=== PATIENT | male | born 1970 | race American Indian/Alaskan Native ===

== ENCOUNTER 2017-06-02 10:52 | Inpatient (IN) | payer MEDICAID ==
--- NOTE | 2017-06-02 11:45 | ED PDOC ---
Arrival/HPI - General Chief Complaint: High Blood Pressure Time Seen by Provider: 06/02/17 11:06 Historian: Patient - History of Present Illness Narrative History of Present Illness (Text): 06/02/17 11:42 47yo male with no Past medical history biba for elevated BP. Patient states his Blood pressure was elevated today, when he went for his physical. States he was told his BP was 210/?? States he have not seen a Doctor for a while and today was the first time seeing a Doctor. He however denies any chest pain, focal weakness, headache, dizziness, visual changes, nausea, vomiting, slurred speech, any other complaint. Past Medical History - Provider Review Nursing Documentation Reviewed: Yes - Infectious Disease Hx of Infectious Diseases: None - Psychiatric Hx Substance Use: No - Anesthesia Hx Anesthesia: No Family/Social History - Physician Review Nursing Documentation Reviewed: Yes Family/Social History: Unknown Family HX Smoking Status: Unknown If Ever Smoked Hx Alcohol Use: Yes Frequency of alcohol use: Socially Hx Substance Use: No Allergies/Home Meds Allergies/Adverse Reactions: Allergies shrimp Allergy (Uncoded 06/02/17 12:09) RASH Home Medications: Home Meds Medication Instructions Recorded Confirmed No Known Home Med 06/02/17 06/02/17 Review of Systems - Physician Review All systems were reviewed & negative as marked: Yes - Review of Systems Constitutional: Normal, Other (Elevated BP) Eyes: Normal ENT: Normal Respiratory: Normal Cardiovascular: Normal Gastrointestinal: Normal Genitourinary Male: Normal Musculoskeletal: Normal Skin: Normal Neurological: Normal Endocrine: Normal Hemo/Lymphatic: Normal Psychiatric: Normal Physical Exam Vital Signs Reviewed: Yes Vital Signs Temp Pulse Resp BP Pulse Ox 06/02/17 15:35 83 18 182/136 H 96 06/02/17 15:00 97.9 F 81 19 171/112 H 98 06/02/17 11:57 65 153/101 H 06/02/17 11:11 98.2 F 65 16 165/110 H 98 Temperature: Afebrile Blood Pressure: Hypertensive Pulse: Regular Respiratory Rate: Normal Appearance: Positive for: Well-Appearing, Non-Toxic, Comfortable Pain Distress: None Mental Status: Positive for: Alert and Oriented X 3 - Systems Exam Head: Present: Atraumatic, Normocephalic Pupils: Present: PERRL Extroacular Muscles: Present: EOMI Conjunctiva: Present: Normal Mouth: Present: Moist Mucous Membranes Neck: Present: Normal Range of Motion Respiratory/Chest: Present: Clear to Auscultation, Good Air Exchange. No: Respiratory Distress, Accessory Muscle Use Cardiovascular: Present: Regular Rate and Rhythm, Normal S1, S2. No: Murmurs Abdomen: Present: Normal Bowel Sounds. No: Tenderness, Distention, Peritoneal Signs Back: Present: Normal Inspection Upper Extremity: Present: Normal Inspection. No: Cyanosis, Edema Lower Extremity: Present: Normal Inspection. No: Edema Neurological: Present: GCS=15, CN II-XII Intact, Speech Normal Skin: Present: Warm, Dry, Normal Color. No: Rashes Psychiatric: Present: Alert, Oriented x 3, Normal Insight, Normal Concentration Medical Decision Making ED Course and Treatment: 06/02/17 16:27 Pt presented to Emergency department for stated history. He remain asymptomatic , but his BP remain elevated s/p medication in Emergency department. He was hypokalemic and potassium was repleted in Emergency department. EKG SR with LVH and possible LAE @66bpm. Pt will be admitted to Emergency department for further evaluation and control of his BP secondary to the LVH finding in the EKG, which indicates some organ damage. Plan was DW the pt and he agreed. Case was DW Dr. Díaz and she accepted pt for admission. - Lab Interpretations Lab Results: 06/02/17 13:00 06/02/17 13:00 Lab Results 06/02/17 13:00: Sodium 140, Potassium 2.9 L*, Chloride 102, Carbon Dioxide 29, Anion Gap 12, BUN 16, Creatinine 0.8, Est GFR ( Amer) > 60, Est GFR (Non- Af Amer) > 60, Random Glucose 91, Calcium 9.2, Total Bilirubin 1.3, AST 33, ALT 44, Alkaline Phosphatase 59, Lactate Dehydrogenase 632, Total Creatine Kinase 248 H, CK-MB (CK-2) 2.7, CK-MB (CK-2) % Cancelled, Troponin I < 0.01, Total Protein 7.0, Albumin 4.0, Globulin 3.1, Albumin/Globulin Ratio 1.3 06/02/17 13:00: PT 11.8, INR 1.08, APTT 32.2 06/02/17 13:00: WBC 5.2, RBC 4.88, Hgb 14.2, Hct 39.9 L, MCV 81.8, MCH 29.1, MCHC 35.6, RDW 13.9, Plt Count 228, MPV 11.3 H, Gran % 46.7 L, Lymph % (Auto) 42.6 H, [place] % (Auto) 6.6 H, Eos % (Auto) 3.5, Baso % (Auto) 0.6, Gran # 2.41, Lymph # 2.2, [place] # 0.3, Eos # 0.2, Baso # 0.03 - Medication Orders Current Medication Orders: Discontinued Medications Amlodipine Besylate (Norvasc) 5 mg PO STAT STA Stop: 06/02/17 11:24 Last Admin: 06/02/17 11:57 Dose: 5 mg MAR Pulse and Blood Pressure Document 06/02/17 11:57 LA (Rec: 06/02/17 11:59 LA [facility] [id number]) Pulse Pulse Rate (60-90 beats/min) 65 Blood Pressure Blood Pressure (100/60-150/90 mm Hg) 153/101 Hydralazine HCl (Apresoline) 10 mg IVP STAT STA Stop: 06/02/17 16:21 Potassium Chloride (Potassium Chloride 20 Meq/100 Ml) 20 meq in 100 mls @ 50 mls/hr IVPB Q2H STA Stop: 06/02/17 15:34 Last Admin: 06/02/17 14:14 Dose: 50 mls/hr eMAR Start Stop Document 06/02/17 14:14 SRE (Rec: 06/02/17 14:14 SRE [id number]) Intravenous Solution Start Date 06/02/17 Start Time 14:00 End Date 06/02/17 End time 17:00 Total Infusion Time 180 Potassium Chloride (Potassium Chloride Oral Soln) 40 meq PO STAT STA Stop: 06/02/17 13:36 Last Admin: 06/02/17 14:00 Dose: 40 meq Disposition/Present on Arrival - Present on Arrival Any Indicators Present on Arrival: No History of DVT/PE: No History of Uncontrolled Diabetes: No Urinary Catheter: No History of Decub. Ulcer: No History Surgical Site Infection Following: None - Disposition Have Diagnosis and Disposition been Completed?: Yes Diagnosis: Uncontrolled hypertension, Hypokalemia Disposition: HOSPITALIZED Disposition Time: 16:25 Patient Problems: Current Active Problems Problem Status Onset Hypokalemia Acute Uncontrolled hypertension Acute Condition: FAIR Referrals: Pasha Elizabeth MD [Primary Care Provider] - Follow up with primary Forms: [employer] ([employer])
[2017-06-02 13:12] LABS: BASO # 0.03 K/mm3 (0.0-2.0); BASO % 0.6 % (0.0-3.0); EOS # 0.2 (0.0-0.7); EOS % 3.5 % (1.5-5.0); GRAN # 2.41 (1.4-6.5); GRAN % 46.7 % (50.0-68.0); HEMATOCRIT 39.9 % (42.0-52.0); LYMPH # 2.2 (1.2-3.4); LYMPH % 42.6 % (22.0-35.0); MEAN CELL VOLUME 81.8 fl (80.0-105.0); MEAN CORPUSCULAR HEMOGLOBIN 29.1 pg (25.0-35.0); MEAN CORPUSCULAR HGB CONC 35.6 g/dl (31.0-37.0); MEAN PLATELET VOLUME 11.3 fl (7.0-11.0); MONO # 0.3 (0.1-0.6); MONO % 6.6 % (1.0-6.0); RED CELL DISTRIBUTION WIDTH 13.9 % (11.5-14.5); WHITE BLOOD COUNT 5.2 10^3/ul (4.5-11.0)
[2017-06-02 13:34] LABS: TROPONIN I < 0.01 ng/mL
[2017-06-02 13:35] LABS: ALB/GLOB RATIO 1.3 (1.1-1.8); ALKALINE PHOSPHATASE 59 U/L (38-126); ALT/SGPT 44 U/L (7-56); AST/SGOT 33 U/L (17-59); BILIRUBIN,TOTAL 1.3 mg/dL (0.2-1.3); BLOOD UREA NITROGEN 16 mg/dL (7-21); CALCIUM 9.2 mg/dL (8.4-10.5); CARBON DIOXIDE 29 mmol/L (21-33); CHLORIDE 102 mmol/L (98-107); GFR AFRICAN-AMERICAN > 60; GLUCOSE,RANDOM 91 mg/dL (70-110); POTASSIUM 2.9 mmol/L (3.6-5.0); SODIUM 140 mmol/L (132-148)
[2017-06-02] MEDS ORDERED: Potassium Chloride 40 mEq/30 ml LIQ UD PO STA (13:35)
[2017-06-02 14:02] LABS: INR 1.08 (0.93-1.08); PARTIAL THROMBOPLASTIN TIME 32.2 Seconds (25.1-36.5)
--- NOTE | 2017-06-02 17:56 | CP.PCM.HP ---
<La Nena Pal - Last Filed: 06/02/17 18:08> History of Present Illness - History of Present Illness History of Present Illness: 47 year old female with no PMHx presents with Elevated BP. Patient went to his PMD for a physical and was found to have his BP elevated with systolic over 180 and diastolic over 100. Patient has no complaints. He denies any fever, headache, dizziness, lightheadedness, chest pain, palpitations, SOB, abdominal pain, or urinary symptoms. PMHx: Denies PSHx: Denies Allergies: Shrimp Social Hx: Denies ever smoking, drinks socially (weekly), lives with his / kids, works as a [employer] FamHx: HTN/Stroke (Father) Meds: None Present on Admission - Present on Admission Any Indicators Present on Admission: No Review of Systems - Review of Systems All systems: reviewed and no additional remarkable complaints except Review of Systems: As per HPI Past Patient History - Infectious Disease Hx of Infectious Diseases: None - Past Social History Smoking Status: Unknown If Ever Smoked - PSYCHIATRIC Hx Substance Use: No - ANESTHESIA Hx Anesthesia: No Meds Allergies/Adverse Reactions: Allergies Allergy/AdvReac Type Severity Reaction Status Date / Time shrimp Allergy RASH Uncoded 06/02/17 22:45 Physical Exam - Constitutional Appears: Well, Non-toxic, No Acute Distress - Head Exam Head Exam: ATRAUMATIC, NORMAL INSPECTION, NORMOCEPHALIC - Eye Exam Eye Exam: EOMI, Normal appearance. absent: Conjunctival injection, Periorbital swelling, Scleral icterus - ENT Exam ENT Exam: Mucous Membranes Moist - Neck Exam Neck exam: Positive for: Normal Inspection. Negative for: Lymphadenopathy, Tenderness, Thyromegaly - Respiratory Exam Respiratory Exam: Clear to Auscultation Bilateral, NORMAL BREATHING PATTERN. absent: Accessory Muscle Use, Decreased Breath Sounds, Rales, Rhonchi, Wheezes, Respiratory Distress, Stridor - Cardiovascular Exam Cardiovascular Exam: RRR, +S1, +S2. absent: Clicks, Diastolic murmur, Gallop, JVD, Systolic Murmur Additional comments: Absent: Carotid Bruit - GI/Abdominal Exam GI & Abdominal Exam: Normal Bowel Sounds, Soft. absent: Bruit, Distended, Firm , Guarding, Mass, Organomegaly, Pulsatile Mass, Rebound, Rigid, Tenderness - Extremities Exam Extremities exam: Positive for: normal capillary refill, normal inspection. Negative for: pedal edema - Neurological Exam Neurological exam: Oriented x3 - Psychiatric Exam Psychiatric exam: Normal Affect, Normal Mood - Skin Skin Exam: Dry, Intact, Normal Color, Warm Results - Vital Signs Recent Vital Signs: Last Vital Signs Temp 98 F 06/02/17 17:43 Pulse 78 06/02/17 17:43 Resp 18 06/02/17 17:43 BP 100/67 06/02/17 17:43 Pulse Ox 96 06/02/17 17:43 - Labs Result Diagrams: 06/02/17 13:00 06/02/17 13:00 Assessment & Plan - Assessment and Plan (Free Text) Assessment: 47 year old male with no past medical history admitted for evaluation and treatment of hypertensive urgency Plan: Hypertensive Urgency Was given norvasc 5 and Hydralazine 10 in ER. --EKG: NSR with LVH, possible left Atrial Enlargement and T wave abnormalities. Awaiting Official Read --ECHO --Cardio Consult (Dr. Garcia) --SAMIR Panel x 3 1st SAMIR NEGATIVE --Fasting lipid Panel in AM --Renin/Aldosterone lvls --TSH -0.48, T4 - 1.29 --PRN Clonidine --Norvasc 5 Daily (Held due to low BP) --ASA 81 Daily --Consider Lisinopril 5 Hypokalemia 2.9 on Admission. Received a total of 60 meQ in ED --Mg ordered; F/U --K+ ordered for 22:00 F/U --CMP tomorrow AM Proph Protonix SCD's Heart Healthy 2g Na Diet Patient seen and discussed with Attending La Nena Pal - PGY-1 - Date & Time Date: 06/02/17 Time: 18:00 <Briana Lofton - Last Filed: 06/03/17 06:54> Results - Vital Signs Recent Vital Signs: Last Vital Signs Temp 98.1 F 06/03/17 06:00 Pulse 83 06/03/17 06:00 Resp 20 06/03/17 06:00 BP 162/103 H 06/03/17 06:00 Pulse Ox 96 06/03/17 06:00 - Labs Result Diagrams: 06/03/17 04:35 06/03/17 04:35 Labs: Laboratory Results - last 24 hr 06/02/17 06/02/17 06/03/17 17:59 21:23 03:55 WBC RBC Hgb Hct MCV MCH MCHC RDW Plt Count MPV Gran % Lymph % (Auto) [place] % (Auto) Eos % (Auto) Baso % (Auto) Gran # Lymph # [place] # Eos # Baso # Sodium Potassium 3.3 L Chloride Carbon Dioxide Anion Gap BUN Creatinine Est GFR ( Amer) Est GFR (Non-Af Amer) Random Glucose Calcium Phosphorus Magnesium 2.1 Total Bilirubin AST ALT Alkaline Phosphatase Total Creatine Kinase 229 198 Troponin I < 0.01 < 0.01 Total Protein Albumin Globulin Albumin/Globulin Ratio Triglycerides Cholesterol LDL Cholesterol Direct HDL Cholesterol 06/03/17 06/03/17 04:35 04:35 WBC 6.2 RBC 4.66 Hgb 13.3 L Hct 38.0 L MCV 81.5 MCH 28.5 MCHC 35.0 RDW 14.1 Plt Count 230 MPV 10.7 Gran % 46.3 L Lymph % (Auto) 43.3 H [place] % (Auto) 6.6 H Eos % (Auto) 3.0 Baso % (Auto) 0.8 Gran # 2.88 Lymph # 2.7 [place] # 0.4 Eos # 0.2 Baso # 0.05 Sodium 142 Potassium 2.9 L* Chloride 105 Carbon Dioxide 27 Anion Gap 13 BUN 17 Creatinine 1.0 Est GFR ( Amer) > 60 Est GFR (Non-Af Amer) > 60 Random Glucose 90 Calcium 8.9 Phosphorus 3.9 Magnesium 2.0 Total Bilirubin 1.3 AST 30 ALT 43 Alkaline Phosphatase 57 Total Creatine Kinase Troponin I Total Protein 7.1 Albumin 3.8 Globulin 3.3 Albumin/Globulin Ratio 1.2 Triglycerides 120 Cholesterol 207 H LDL Cholesterol Direct 135 H HDL Cholesterol 35 Attending/Attestation - Attestation I have personally seen and examined this patient.: Yes I have fully participated in the care of the patient.: Yes I have reviewed all pertinent clinical information: Yes Notes (Text): 06/03/17 06:52 47 year old male with no significant past medical history who was sent from his pmd for evaluation of elevated blood pressure. He was given norvasc and hydralazine in the ER. Can continue with norvasc and clonidine prn. He was found to have abnormal EKG (TWI lateral leads) although he denies any chest pain or shortness of breath. Serial cardiac ezymes and echocardiogram was ordered. Will also request for cardiology evaluation. Hypokalemia was repleted in ER. Will recheck and supplement as needed. Briana Lofton MD Hospitalist.
[2017-06-02 18:27] LABS: FREE T4 1.29 ng/dL (0.78-2.19)
[2017-06-02 18:41] LABS: THYROID STIMULATING HORMONE 0.48 mIU/mL (0.46-4.68)
[2017-06-02 21:48] LABS: POTASSIUM 3.3 mmol/L (3.6-5.0)
[2017-06-02 21:58] LABS: TROPONIN I < 0.01 ng/mL
[2017-06-02 23:29] VITALS: BMI 36.0
[2017-06-02] MEDS ORDERED: Influenza Vaccine 60 mcg/0.5 mL SYR (4YR UP) IM ONE (23:29)
[2017-06-02] MEDS ORDERED: Pneumococcal 23-Valent Vaccine IM ONE (23:29)
[2017-06-03 04:24] LABS: TROPONIN I < 0.01 ng/mL
[2017-06-03 04:54] LABS: BASO # 0.05 K/mm3 (0.0-2.0); BASO % 0.8 % (0.0-3.0); EOS # 0.2 (0.0-0.7); GRAN # 2.88 (1.4-6.5); GRAN % 46.3 % (50.0-68.0); LYMPH # 2.7 (1.2-3.4); LYMPH % 43.3 % (22.0-35.0); MEAN CELL VOLUME 81.5 fl (80.0-105.0); MEAN CORPUSCULAR HEMOGLOBIN 28.5 pg (25.0-35.0); MEAN PLATELET VOLUME 10.7 fl (7.0-11.0); MONO # 0.4 (0.1-0.6); MONO % 6.6 % (1.0-6.0); RED CELL DISTRIBUTION WIDTH 14.1 % (11.5-14.5); WHITE BLOOD COUNT 6.2 10^3/ul (4.5-11.0)
[2017-06-03 05:28] LABS: ALB/GLOB RATIO 1.2 (1.1-1.8); ALKALINE PHOSPHATASE 57 U/L (38-126); ALT/SGPT 43 U/L (7-56); AST/SGOT 30 U/L (17-59); BILIRUBIN,TOTAL 1.3 mg/dL (0.2-1.3); BLOOD UREA NITROGEN 17 mg/dL (7-21); CALCIUM 8.9 mg/dL (8.4-10.5); CARBON DIOXIDE 27 mmol/L (21-33); CHLORIDE 105 mmol/L (98-107); CHOLESTEROL 207 mg/dL (130-200); GFR AFRICAN-AMERICAN > 60; GLUCOSE,RANDOM 90 mg/dL (70-110); PHOSPHOROUS 3.9 mg/dL (2.5-4.5); POTASSIUM 2.9 mmol/L (3.6-5.0); SODIUM 142 mmol/L (132-148); TOTAL PROTEIN 7.1 g/dL (5.8-8.3)
[2017-06-03] MEDS ORDERED: Potassium Chloride 20 mEq ER Tab PO ONE ×2 (05:31→08:58)
[2017-06-03] MEDS ORDERED: Potassium Chloride 40 mEq/30 ml LIQ UD PO ONE ×2 (07:32→14:33)
[2017-06-03] MEDS: Pantoprazole 40 mg EC Tab PO SCH (09:45)
--- NOTE | 2017-06-03 10:37 | CARD ---
APPROVED REPORT EKG Measurement Heart [id number] <Conclusion> Normal sinus rhythm Possible Left atrial enlargement Left ventricular hypertrophy T wave abnormality, consider inferolateral ischemia Prolonged QT Abnormal ECG
--- NOTE | 2017-06-03 12:57 | CP.PCM.PN ---
<La Nena Pal - Last Filed: 06/03/17 12:53> Subjective - Date & Time of Evaluation Date of Evaluation: 06/03/17 Time of Evaluation: 12:53 - Subjective Subjective: Patient has been seen and examined. No overnight events reported. Patient got a dose of PRN clonidine due to elevated BP. Patient has no complaints at this time. Denies any headache, lightheadedness, vision changes, chest pain, palpitations, SOB, abdominal pain, back pain, changes in bowel habits or urinary symptoms. Objective - Vital Signs/Intake and Output Vital Signs (last 24 hours): Temp Pulse Resp BP Pulse Ox 98.3 F 78 20 183/110 H 96 06/03/17 11:26 06/03/17 11:34 06/03/17 11:26 06/03/17 11:34 06/03/17 06:00 Intake and Output: 06/03/17 06/03/17 06:59 18:59 Intake Total 0 Balance 0 - Medications Medications: Current Medications Amlodipine Besylate (Norvasc) 5 mg PO DAILY [facility] Last Admin: 06/03/17 09:45 Dose: 5 mg Aspirin (Aspirin Chewable) 81 mg PO DAILY [facility] Last Admin: 06/03/17 09:45 Dose: 81 mg Hydralazine HCl (Apresoline) 25 mg PO Q4 PRN PRN Reason: Other Losartan Potassium (Cozaar) 50 mg PO DAILY [facility] Pantoprazole Sodium (Protonix Ec Tab) 40 mg PO DAILY [facility] Last Admin: 06/03/17 09:45 Dose: 40 mg - Labs Labs: 06/03/17 04:35 06/03/17 04:35 PT 11.8 SECONDS (9.4-12.5) 06/02/17 13:00 INR 1.08 (0.93-1.08) 06/02/17 13:00 APTT 32.2 Seconds (25.1-36.5) 06/02/17 13:00 - Additional Findings Additional findings: - Constitutional Appears: Well, Non-toxic, No Acute Distress - Head Exam Head Exam: ATRAUMATIC, NORMAL INSPECTION, NORMOCEPHALIC - Eye Exam Eye Exam: EOMI, Normal appearance. absent: Conjunctival injection, Periorbital swelling, Scleral icterus - ENT Exam ENT Exam: Mucous Membranes Moist - Neck Exam Neck exam: Positive for: Normal Inspection. Negative for: Lymphadenopathy, Tenderness, Thyromegaly - Respiratory Exam Respiratory Exam: Clear to Auscultation Bilateral, NORMAL BREATHING PATTERN. absent: Accessory Muscle Use, Decreased Breath Sounds, Rales, Rhonchi, Wheezes, Respiratory Distress, Stridor - Cardiovascular Exam Cardiovascular Exam: RRR, +S1, +S2. absent: Clicks, Diastolic murmur, Gallop, JVD, Systolic Murmur Additional comments: Absent: Carotid Bruit - GI/Abdominal Exam GI & Abdominal Exam: Normal Bowel Sounds, Soft. absent: Bruit, Distended, Firm , Guarding, Mass, Organomegaly, Pulsatile Mass, Rebound, Rigid, Tenderness - Extremities Exam Extremities exam: Positive for: normal capillary refill, normal inspection. Negative for: pedal edema - Neurological Exam Neurological exam: Oriented x3 - Psychiatric Exam Psychiatric exam: Normal Affect, Normal Mood - Skin Skin Exam: Dry, Intact, Normal Color, Warm Assessment and Plan - Assessment and Plan (Free Text) Assessment: 47 year old male with no past medical history admitted for evaluation and treatment of hypertensive urgency Plan: Hypertensive Urgency Was given norvasc 5 and Hydralazine 10 in ER. Possibly 2/2 to primary Hyperaldosteronism. --EKG: NSR with LVH, possible left Atrial Enlargement and T wave abnormalities. Awaiting Official Read --ECHO: Pending. --Cardio Consult (Dr. Garcia) --SAMIR Panel x 3: NEGATIVE --Fasting lipid Panel: TG's-120, T.Chol 207, LDL-135, HDL-35. -Educated on lifestyle changes to reduce his cholesterol. --Renin/Aldosterone lvls (PENDING) --TSH -0.48, T4 - 1.29 --PRN Clonidine --Norvasc 5 Daily --ASA 81 Daily --Consider Spirinolactone Hypokalemia 2.9 on Admission. Received a total of 60 meQ in ED --2.9 today; Repleted --Mg WNL Proph Protonix SCD's Heart Healthy 2g Na Diet Dispo: Blood pressure is still uncontrolled. Patient will likely need to be switched to Inpatient if pressure is not controlled by this evening. Patient seen and discussed with Attending La Nena Pal - PGY-1 <Briana Lofton - Last Filed: 06/03/17 13:45> Objective - Vital Signs/Intake and Output Vital Signs (last 24 hours): Temp Pulse Resp BP Pulse Ox 98.3 F 78 20 183/110 H 96 06/03/17 11:26 06/03/17 11:34 06/03/17 11:26 06/03/17 11:34 06/03/17 06:00 Intake and Output: 06/03/17 06/03/17 06:59 18:59 Intake Total 0 Balance 0 - Medications Medications: Current Medications Amlodipine Besylate (Norvasc) 5 mg PO DAILY [facility] Last Admin: 06/03/17 09:45 Dose: 5 mg Aspirin (Aspirin Chewable) 81 mg PO DAILY [facility] Last Admin: 06/03/17 09:45 Dose: 81 mg Hydralazine HCl (Apresoline) 25 mg PO Q4 PRN PRN Reason: Other Losartan Potassium (Cozaar) 50 mg PO DAILY [facility] Pantoprazole Sodium (Protonix Ec Tab) 40 mg PO DAILY [facility] Last Admin: 06/03/17 09:45 Dose: 40 mg - Labs Labs: 06/03/17 04:35 06/03/17 04:35 PT 11.8 SECONDS (9.4-12.5) 06/02/17 13:00 INR 1.08 (0.93-1.08) 06/02/17 13:00 APTT 32.2 Seconds (25.1-36.5) 06/02/17 13:00 Attending/Attestation - Attestation I have personally seen and examined this patient.: Yes I have fully participated in the care of the patient.: Yes I have reviewed all pertinent clinical information, including history, physical exam and plan: Yes Notes (Text): 06/03/17 13:41 47 year old male with no significant past medical history who was sent from his pmd for evaluation of elevated blood pressure. He is on norvasc and also started on cozaar and hydralazine prn today for poorly controlled hypertension. Case was discussed with nephrology and workup for secondary hypertension is ordered. This is including renal sonogram, renin/aldosterone and metanephrine studies. He was also found to have abnormal EKG (TWI lateral leads) although he denies any chest pain or shortness of breath. Serial cardiac ezymes were negative. Case was discussed with cardiology; will follow up on echocardiogram was ordered. Will replete and repeat potassium. Briana Lofton MD Hospitalist.
[2017-06-03] MEDS ORDERED: Potassium Chloride 20 mEq/15 ml LIQ UD PO ONE (14:35)
--- NOTE | 2017-06-03 15:32 | CP.PCM.CON ---
History of Present Illness - History of Present Illness History of Present Illness: Initial Nephrology Consultation: Assessment: Stable uncontrolled severe HTN with hypokalemia and elevated serum Bicarb Obesity non-compliant to follow ups Plan Hypertension control with meds as ordered. Patient not on ACEI/ARB hence will start losartan 50 mg/day. agree with norvasc. avoid diuretics due to low K. avoid aldactone as it will interfere with confirmation/diagnosis of hyperaldo state. added hydralazine prn. d/c clonidine as prn med as it can be associated with rebound htn. supplement electrolytes low salt diet, exercise, weight loss, lifestyle modifications Work up as renin/mandeep level, metanephrine, renal artery doppler and urine tox, ua and urine pro/cr. Dose meds/antibiotics for normal GFR. Avoid fleets enema/magnesium based laxatives. Avoid nephrotoxins/NSAIDs/ iodinated contrast (unless needed emergently) Glycemic control Further work up/management as per primary team Thanks for allowing me to participate in care of your patient. Will follow patient with you. Please call if any Qs. d/w primary team Dr Ravindra Arizmendi Office: [phone] Chief Complaint; high BP HPI: Pt is a 47 M without any hx of diabetes Mellitus or hypertension presented with complaints of high BP as noticed in office. he usually doesn't follow up with any doctor. he says 2-3 years ago he was told that his BP was on high side, doesn't remember how much. not on any meds at home Denies OTC/herbal meds or NSAIDs denies drugs such as cocaine, smoking, tobacco, licorice, decongestants. father had HTN in 60s. no hx of premature HTN in family. ROS: Cardiovascular: No chest pain. Pulmonary: No shortness of breath Gastrointestinal: denies abdominal pain No nausea. No vomiting. Genitourinary: No pain while urinating. Denies blood in urine. All other negative Physical Examination: General Appearance: Comfortable, in no acute respiratory distress, co-operative . well built male Vitals reviewed and noted as below Head; Atraumatic, normocephalic ENT: no ulcers no thrush. Tongue is midline. Oropharynx: no rash or ulcers. EYES: Pupils are equal, round and reactive to light accommodation. Eye muscles and extraocular movement intact. Sclera is anicteric. Neck; supple no lymphadenopathy, no thyromegaly or bruit Lungs: Normal respiratory rate/effort. Breath sounds bilateral equal and clear Heart: Normal rate. s1s2 normal. No rub or gallop. Extremities: no edema. No varicose veins Neurological: Patient is alert, awake and oriented to person, place and time. No focal deficit. Strength bilateral appropriate and equal Skin: Warm and dry. Normal turgor. No rash. Palpitation: Normal elasticity for age Abdomen: Abdomen is soft. Bowel sounds +. There is no abdominal tenderness, no guarding/rigidity no organomegaly Psych: normal insight and normal affect/mood MSK: no joint tenderness or swelling. Digits and nails normal, no deformity : kidney or bladder not palpable Labs/imaging reviewed. Past medical history, past surgical history, family history, social history, allergy reviewed and noted as below Family hx: no hx of CKD. Rest non-contributory Past Patient History - Infectious Disease Hx of Infectious Diseases: None - Past Social History Smoking Status: Never Smoked - CARDIAC Hx Cardiac Disorders: No - PULMONARY Hx Respiratory Disorders: Yes (used to smoke cigarrettes) - NEUROLOGICAL Hx Neurological Disorder: No - HEENT Hx HEENT Problems: No - RENAL Hx Chronic Kidney Disease: No - ENDOCRINE/METABOLIC Hx Endocrine Disorders: No - HEMATOLOGICAL/ONCOLOGICAL Hx Blood Disorders: No - INTEGUMENTARY Hx Dermatological Problems: No - MUSCULOSKELETAL/RHEUMATOLOGICAL Hx Falls: No - GASTROINTESTINAL Hx Gastrointestinal Disorders: No - GENITOURINARY/GYNECOLOGICAL Hx Genitourinary Disorders: No - PSYCHIATRIC Hx Substance Use: No - SURGICAL HISTORY Hx Surgeries: No - ANESTHESIA Hx Anesthesia: No Meds Allergies/Adverse Reactions: Allergies Allergy/AdvReac Type Severity Reaction Status Date / Time shrimp Allergy RASH Uncoded 06/02/17 22:45 - Medications Medications: Current Medications Amlodipine Besylate (Norvasc) 5 mg PO DAILY [facility] Last Admin: 06/03/17 09:45 Dose: 5 mg Aspirin (Aspirin Chewable) 81 mg PO DAILY [facility] Last Admin: 06/03/17 09:45 Dose: 81 mg Hydralazine HCl (Apresoline) 25 mg PO Q4 PRN PRN Reason: Other Losartan Potassium (Cozaar) 50 mg PO DAILY [facility] Last Admin: 06/03/17 14:21 Dose: 50 mg Pantoprazole Sodium (Protonix Ec Tab) 40 mg PO DAILY [facility] Last Admin: 06/03/17 09:45 Dose: 40 mg Results - Vital Signs Recent Vital Signs: Last Vital Signs Temp 98.3 F 06/03/17 11:26 Pulse 75 06/03/17 14:21 Resp 20 06/03/17 11:26 BP 133/100 H 06/03/17 14:21 Pulse Ox 96 06/03/17 06:00 - Labs Result Diagrams: 06/03/17 04:35 06/03/17 14:00
[2017-06-03 22:11] LABS: URINE BILIRUBIN NEGATIVE (NEGATIVE); URINE BLOOD NEGATIVE (NEGATIVE); URINE GLUCOSE (UA) NEGATIVE (NEGATIVE); URINE KETONE NEGATIVE (NEGATIVE); URINE LEUKOCYTE ESTERASE NEGATIVE Leu/uL (NEGATIVE); URINE PROTEIN NEGATIVE mg/dL (<30 mg/dL)
[2017-06-03 22:21] LABS: URINE APPEARANCE CLEAR (CLEAR); URINE COLOR YELLOW (YELLOW)
[2017-06-04 07:05] LABS: ALB/GLOB RATIO 1.2 (1.1-1.8); ALKALINE PHOSPHATASE 58 U/L (38-126); ALT/SGPT 38 U/L (7-56); AST/SGOT 29 U/L (17-59); BILIRUBIN,TOTAL 1.3 mg/dL (0.2-1.3); BLOOD UREA NITROGEN 14 mg/dL (7-21); CALCIUM 8.9 mg/dL (8.4-10.5); CARBON DIOXIDE 26 mmol/L (21-33); CHLORIDE 106 mmol/L (98-107); GFR AFRICAN-AMERICAN > 60; GLUCOSE,RANDOM 91 mg/dL (70-110); MAGNESIUM 1.8 mg/dL (1.7-2.2); POTASSIUM 3.1 mmol/L (3.6-5.0); SODIUM 142 mmol/L (132-148); TOTAL PROTEIN 7.2 g/dL (5.8-8.3)
[2017-06-04 07:19] LABS: BASO # 0.04 K/mm3 (0.0-2.0); BASO % 0.8 % (0.0-3.0); EOS # 0.2 (0.0-0.7); EOS % 3.2 % (1.5-5.0); GRAN # 2.28 (1.4-6.5); GRAN % 45.3 % (50.0-68.0); HEMATOCRIT 37.9 % (42.0-52.0); LYMPH # 2.2 (1.2-3.4); LYMPH % 43.1 % (22.0-35.0); MEAN CELL VOLUME 81.9 fl (80.0-105.0); MEAN CORPUSCULAR HEMOGLOBIN 28.3 pg (25.0-35.0); MEAN CORPUSCULAR HGB CONC 34.6 g/dl (31.0-37.0); MEAN PLATELET VOLUME 11.3 fl (7.0-11.0); MONO # 0.4 (0.1-0.6); MONO % 7.6 % (1.0-6.0); RED CELL DISTRIBUTION WIDTH 13.9 % (11.5-14.5)
[2017-06-04] MEDS ORDERED: Potassium Chloride 40 mEq/30 ml LIQ UD PO STA (08:02)
--- NOTE | 2017-06-04 08:38 | CT ---
PROCEDURE: CT Abdomen and Pelvis without intravenous contrast HISTORY: r/o adrenal mass COMPARISON: None. TECHNIQUE: Without contrast.. Contrast Dose: 0 Radiation dose: Total exam DLP = 430.87 mGy-cm. This CT exam was performed using one or more of the following dose reduction techniques: Automated exposure control, adjustment of the mA and/or kV according to patient size, and/or use of iterative reconstruction technique. FINDINGS: LOWER THORAX: Unremarkable. LIVER: Unremarkable. No gross lesion or ductal dilatation. GALLBLADDER AND BILE DUCTS: Unremarkable. PANCREAS: Unremarkable. No gross lesion or ductal dilatation. SPLEEN: Unremarkable. ADRENALS: Unremarkable. No mass. KIDNEYS AND URETERS: 2 mm nonobstructing left lower pole renal calculus. No right renal calculus. No renal mass. No hydronephrosis. VASCULATURE: Unremarkable. No aortic aneurysm. BOWEL: Unremarkable. No obstruction. No gross mural thickening. APPENDIX: Only the base of the appendix is visualized on this examination, due to inclusion of only the abdomen as per the order. . PERITONEUM: Unremarkable. No free fluid. No free air. LYMPH NODES: Unremarkable. No enlarged lymph nodes. BONES: No acute fracture. OTHER FINDINGS: None. IMPRESSION: No evidence of adrenal mass. Incidental 2 mm nonobstructing left lower pole renal calculus. Otherwise unremarkable examination.
--- NOTE | 2017-06-04 09:06 | US ---
PROCEDURE: Bilateral renal artery duplex ultrasound. CLINICAL HISTORY: Renal artery stenosis. Uncontrolled hypertension. Evaluate for renovascular hypertension. PHYSICIAN(S): Immanuel Sutton M.D. TECHNIQUE: Duplex sonography with color-flow Doppler was used to evaluate the visualized segments of the main renal arteries. The patient was evaluated in a fasting state. Imaging in a supine and decubitus position was performed. Limited evaluation of the arcuate waveforms and resistive indices were performed. FINDINGS: The overall quality of the study is adequate. The kidneys are normal in size, shape, and location. The right kidney measures 11.5cm in length and the left kidney measures 12.6cm in length. No solid renal masses, abnormal calcifications, or hydronephrosis is seen. The renal parenchyma is normal in thickness but may be slightly echogenic The main right renal artery is well visualized from the aorta to the hilum. The peak systolic velocity in the right main renal artery is 73 cm/sec. This is consistent with a 0 to 49% stenosis in the main right renal artery. The arcuate waveforms are normal. The resistive index is normal. The main left renal artery is not as well seen as the right. The peak systolic velocity in the main left renal artery is 89cm/sec. This corresponds to a 0 to 49% stenosis in the main left renal artery. The arcuate waveforms and resistive indices are normal. IMPRESSION: 1. The main renal arteries are fairly well visualized. 2. No sonographically significant stenosis is identified. 3. The kidneys are normal and symmetric in size. There are no solid renal masses, abnormal calcifications or hydronephrosis noted. The renal parenchyma is normal in thickness but appears to be slightly echogenic
--- NOTE | 2017-06-04 09:24 | CARD ---
APPROVED REPORT EXAM: Two-dimensional and M-mode echocardiogram with Doppler and color Doppler. Other Information Quality : GoodRhythm : INDICATION Abnormal EKG/Arrhythmia ELEVATED BP 2D DIMENSIONS Left Atrium (2D)3.6 (1.6-4.0cm)IVSd1.3 (0.7-1.1cm) LVDd4.0 (3.9-5.9cm)PWd1.3 (0.7-1.1cm) LVDs2.8 (2.5-4.0cm)FS (%) 30.7 % LVEF (%)59.0 (>50%) M-Mode DIMENSIONS Aortic Root3.50 (2.2-3.7cm)Aortic Cusp Exc.2.00 (1.5-2.0cm) Aortic Valve AoV Peak Gvrzkjcx886.0cm/s Mitral Valve MV E Gmpddbqo78.3cm/sMV A Rrqjxgyz85.3cm/sE/A ratio0.8 TDI Lateral E' Peak V6.14cm/sMedial E' Peak V4.97cm/sE/Lateral E'8.8 E/Medial E'10.9 Pulmonary Valve PV Peak Kfhhlekj44.1cm/sPV Peak Grad.2mmHg Tricuspid Valve TR Peak Zrpouxns838yt/sRAP AOBBRIBR94avOvJP Peak Gr.23mmHg [id number] LEFT VENTRICLE The left ventricle is normal size. There is mild to moderate concentric left ventricular hypertrophy. The left ventricular function is normal. The left ventricular ejection fraction is within the normal range. There is normal LV segmental wall motion. RIGHT VENTRICLE The right ventricle is normal size. ATRIA The left atrium size is normal. The right atrium size is normal. The atrial septum appears aneurysmal. AORTIC VALVE The aortic valve is normal in structure. MITRAL VALVE The mitral valve is normal in structure. Mitral regurgitation is trace. TRICUSPID VALVE The tricuspid valve is normal in structure. There is trace tricuspid regurgitation. PULMONIC VALVE The pulmonic valve is not well visualized. There is trace pulmonic valvular regurgitation. GREAT VESSELS The aortic root is normal in size. PERICARDIAL EFFUSION There is no pericardial effusion. <Conclusion> The left ventricle is normal size. There is mild to moderate concentric left ventricular hypertrophy. The left ventricular function is normal. The atrial septum appears aneurysmal.
[2017-06-04] MEDS: Pantoprazole 40 mg EC Tab PO SCH (09:39)
[2017-06-04] MEDS ORDERED: Potassium Chloride 20 mEq ER Tab PO ONE (10:00)
--- NOTE | 2017-06-04 12:11 | CON ---
DATE: REASON FOR CONSULTATION: Uncontrolled hypertension. HISTORY OF PRESENT ILLNESS: The patient is 47-year-old male, originally from [facility], who was recently diagnosed with hypertension, but was not placed on any medications and was referred from the clinic because of significantly elevated blood pressure. The patient denies any dizziness or headache. The patient is unaware of any prior cardiac history. SOCIAL HISTORY: The patient is nonsmoker. He is occasional drinker. He works as a livery car driver. MEDICATIONS: Hydralazine 25 mg q. 4 hours p.r.n., aspirin 81 mg once a day, Cozaar 50 mg once a day, Norvasc 5 mg once a day, Protonix 40 mg p.o. once a day. REVIEW OF SYSTEMS: No nausea or vomiting. No fever or chills. No retrosternal chest pain. PHYSICAL EXAMINATION GENERAL: The patient is a middle-aged male, who does not appear to be in acute distress. VITAL SIGNS: Blood pressure 133/100, heart rate 75, temperature 98.3, respirations 20. HEENT: Normocephalic. NECK: No JVD. CHEST: Clear. HEART: S1 and S2 regular. EXTREMITIES: No edema. LABORATORY DATA: SMA-7; sodium 142, potassium 2.9, chloride 105, CO2 of 27, glucose 90, BUN 17, creatinine 1.0. LDL cholesterol is elevated to 107 and HDL cholesterol is elevated at 135. TSH level is within normal limit. PT and PTT are within normal limit. Hemoglobin and hematocrit are 15.3 and 38.0, white count and platelet count are within normal limit. EKG revealed sinus rhythm at a rate of 86. Left atrial enlargement, LVH, T-wave abnormality. Consider inferolateral ischemia, prolonged QT interval. ASSESSMENT: 1. Uncontrolled hypertension. 2. Questionable ischemic EKG changes, myocardial infarction was ruled out. Total three sets of troponins are negative. 3. Significant hypokalemia. 4. Rule out primary hyperaldosteronism. RECOMMENDATIONS: Continue Cozaar 50 mg once a day, Norvasc 5 mg once a day, hydralazine 25 mg q. 4 hours, aspirin 81 mg once a day, mg orally daily. Consider adrenal gland imaging with abdomen CT scan. Also consider urinary cortisol level. Issa Garcia MD
--- NOTE | 2017-06-04 13:03 | CP.PCM.PN ---
Addendum entered and electronically signed by La Nena Pal DO 06/04/17 13:13: Renal Artery Duplex and Abdominal CT were unremarkable. Original Note: <La Nena Pal - Last Filed: 06/04/17 12:59> Subjective - Date & Time of Evaluation Date of Evaluation: 06/04/17 Time of Evaluation: 12:59 - Subjective Subjective: Patient has been seen and examined. No overnight reported. Patient has no complaints at this time. Denies any headache, LH, chest pain, palpitations, SOB , abdominal pain, changes in bowel habits, or urinary symptoms. Objective - Vital Signs/Intake and Output Vital Signs (last 24 hours): Temp Pulse Resp BP Pulse Ox 97.3 F L 73 18 166/120 H 98 06/04/17 12:00 06/04/17 12:00 06/04/17 12:00 06/04/17 12:06 06/04/17 06:00 Intake and Output: 06/04/17 06/04/17 06:59 18:59 Intake Total 300 Balance 300 - Medications Medications: Current Medications Amlodipine Besylate (Norvasc) 10 mg PO DAILY [facility] Aspirin (Aspirin Chewable) 81 mg PO DAILY [facility] Last Admin: 06/04/17 09:39 Dose: 81 mg Hydralazine HCl (Apresoline) 25 mg PO Q4 PRN PRN Reason: Other Last Admin: 06/04/17 09:42 Dose: 25 mg Losartan Potassium (Cozaar) 100 mg PO DAILY [facility] Pantoprazole Sodium (Protonix Ec Tab) 40 mg PO DAILY [facility] Last Admin: 06/04/17 09:39 Dose: 40 mg - Labs Labs: 06/04/17 05:30 06/04/17 05:30 PT 11.8 SECONDS (9.4-12.5) 06/02/17 13:00 INR 1.08 (0.93-1.08) 06/02/17 13:00 APTT 32.2 Seconds (25.1-36.5) 06/02/17 13:00 - Additional Findings Additional findings: - Constitutional Appears: Well, Non-toxic, No Acute Distress - Head Exam Head Exam: ATRAUMATIC, NORMAL INSPECTION, NORMOCEPHALIC - Eye Exam Eye Exam: EOMI, Normal appearance. absent: Conjunctival injection, Periorbital swelling, Scleral icterus - ENT Exam ENT Exam: Mucous Membranes Moist - Neck Exam Neck exam: Positive for: Normal Inspection. Negative for: Lymphadenopathy, Tenderness, Thyromegaly - Respiratory Exam Respiratory Exam: Clear to Auscultation Bilateral, NORMAL BREATHING PATTERN. absent: Accessory Muscle Use, Decreased Breath Sounds, Rales, Rhonchi, Wheezes, Respiratory Distress, Stridor - Cardiovascular Exam Cardiovascular Exam: RRR, +S1, +S2. absent: Clicks, Diastolic murmur, Gallop, JVD, Systolic Murmur Additional comments: Absent: Carotid Bruit - GI/Abdominal Exam GI & Abdominal Exam: Normal Bowel Sounds, Soft. absent: Bruit, Distended, Firm , Guarding, Mass, Organomegaly, Pulsatile Mass, Rebound, Rigid, Tenderness - Extremities Exam Extremities exam: Positive for: normal capillary refill, normal inspection. Negative for: pedal edema - Neurological Exam Neurological exam: Oriented x3 - Psychiatric Exam Psychiatric exam: Normal Affect, Normal Mood - Skin Skin Exam: Dry, Intact, Normal Color, Warm Assessment and Plan - Assessment and Plan (Free Text) Assessment: 47 year old male with no past medical history admitted for evaluation and treatment of hypertensive urgency Plan: Hypertensive Urgency Was given norvasc 5 and Hydralazine 10 in ER. Possibly 2/2 to primary Hyperaldosteronism. --EKG: NSR with LVH, possible left Atrial Enlargement and T wave abnormalities. Awaiting Official Read --ECHO: mild to moderate LVH, Normal EF (59%), atrial septum appears aneurysmal. --Cardio Consult (Dr. Garcia) - Recs Appreciated --Nephro Consult (Dr. Arizmendi) - Recs Appreciated --SAMIR Panel x 3: NEGATIVE --Fasting lipid Panel: TG's-120, T.Chol 207, LDL-135, HDL-35. -Educated on lifestyle changes to reduce his cholesterol. --Renin/Aldosterone lvls (PENDING) --TSH -0.48, T4 - 1.29 --PRN Hydralazine 25 Q4 --Norvasc 5 Daily INC. to 10mg Daily per Nephro. --Losartan 50 INC. to 100 Daily per Nephro --ASA 81 Daily --AM Cortisol: 1.3 L Hypokalemia 2.9 on Admission. Received a total of 60 meQ in ED --2.9 today; Repleted --Mg WNL Proph Protonix SCD's Heart Healthy 2g Na Diet Dispo: Blood pressure is still uncontrolled. Increased BP meds per Nephro. We will monitor BP on new meds. If controlled patient will go home tomorrow. Patient seen and discussed with Attending La Nena Pal - PGY-1 <Briana Lofton - Last Filed: 06/04/17 14:10> Objective - Vital Signs/Intake and Output Vital Signs (last 24 hours): Temp Pulse Resp BP Pulse Ox 97.3 F L 73 18 177/109 H 98 06/04/17 12:00 06/04/17 12:00 06/04/17 12:00 06/04/17 13:26 06/04/17 06:00 Intake and Output: 06/04/17 06/04/17 06:59 18:59 Intake Total 300 Balance 300 - Medications Medications: Current Medications Amlodipine Besylate (Norvasc) 10 mg PO DAILY [facility] Aspirin (Aspirin Chewable) 81 mg PO DAILY [facility] Last Admin: 06/04/17 09:39 Dose: 81 mg Hydralazine HCl (Apresoline) 25 mg PO Q4 PRN PRN Reason: Other Last Admin: 06/04/17 09:42 Dose: 25 mg Losartan Potassium (Cozaar) 100 mg PO DAILY [facility] Pantoprazole Sodium (Protonix Ec Tab) 40 mg PO DAILY [facility] Last Admin: 06/04/17 09:39 Dose: 40 mg - Labs Labs: 06/04/17 05:30 06/04/17 05:30 PT 11.8 SECONDS (9.4-12.5) 06/02/17 13:00 INR 1.08 (0.93-1.08) 06/02/17 13:00 APTT 32.2 Seconds (25.1-36.5) 06/02/17 13:00 Attending/Attestation - Attestation I have personally seen and examined this patient.: Yes I have fully participated in the care of the patient.: Yes I have reviewed all pertinent clinical information, including history, physical exam and plan: Yes Notes (Text): 06/04/17 14:07 47 year old male with no significant past medical history who was sent from his pmd for evaluation of elevated blood pressure. His blood pressure today remains poorly controlled on norvasc 5 mg, cozaar 50 mg and hydralazine prn. Nephrology is following and has recommended to increase norvasc to 10 mg and cozaar to 100 mg. Renin/aldosterone and metanephrine studies are pending. CT abd/pelvis, renal sonogram and echocardiogram were reviewed. Will follow up with cardiology and nephrology recommendations. Will replete and repeat potassium. Briana Lofton MD Hospitalist.
--- NOTE | 2017-06-04 15:22 | CP.PCM.PN ---
Subjective - Date & Time of Evaluation Date of Evaluation: 06/04/17 Time of Evaluation: 15:20 - Subjective Subjective: Follow up Nephrology Consultation: Assessment: Stable uncontrolled severe HTN with urgency with hypokalemia and elevated serum Bicarb r/o primary hyperaldo Obesity non-compliant to follow ups Plan Hypertension control with meds as ordered. Increased losartan 100 mg/day. norvasc 10 mg/day and added labetalol 200 bid. avoid diuretics due to low K. avoid aldactone as it will interfere with confirmation/diagnosis of hyperaldo state. added hydralazine prn. supplement electrolytes low salt diet, exercise, weight loss, lifestyle modifications Work up as renin/mandeep level, metanephrine pending Dose meds/antibiotics for normal GFR. Avoid fleets enema/magnesium based laxatives. Avoid nephrotoxins/NSAIDs/ iodinated contrast (unless needed emergently) Glycemic control Further work up/management as per primary team d/c plan once BP stable and control better Thanks for allowing me to participate in care of your patient. Will follow patient with you. Please call if any Qs. d/w primary team Dr Ravindra Arizmendi Office: [phone] Chief Complaint; none HPI: Pt is a 47 M without any hx of diabetes Mellitus or hypertension presented with complaints of high BP as noticed in office. he usually doesn't follow up with any doctor. he says 2-3 years ago he was told that his BP was on high side, doesn't remember how much. not on any meds at home Denies OTC/herbal meds or NSAIDs denies drugs such as cocaine, smoking, tobacco, licorice, decongestants. father had HTN in 60s. no hx of premature HTN in family. ROS: Cardiovascular: No chest pain. Pulmonary: No shortness of breath Gastrointestinal: denies abdominal pain No nausea. No vomiting. Genitourinary: No pain while urinating. Denies blood in urine. All other negative Physical Examination: General Appearance: Comfortable, in no acute respiratory distress, co-operative . well built male Vitals reviewed and noted as below Head; Atraumatic, normocephalic ENT: no ulcers no thrush. Tongue is midline. Oropharynx: no rash or ulcers. EYES: Pupils are equal, round and reactive to light accommodation. Eye muscles and extraocular movement intact. Sclera is anicteric. Neck; supple no lymphadenopathy, no thyromegaly or bruit Lungs: Normal respiratory rate/effort. Breath sounds bilateral equal and clear Heart: Normal rate. s1s2 normal. No rub or gallop. Extremities: no edema. No varicose veins Neurological: Patient is alert, awake and oriented to person, place and time. No focal deficit. Strength bilateral appropriate and equal Skin: Warm and dry. Normal turgor. No rash. Palpitation: Normal elasticity for age Abdomen: Abdomen is soft. Bowel sounds +. There is no abdominal tenderness, no guarding/rigidity no organomegaly Psych: normal insight and normal affect/mood MSK: no joint tenderness or swelling. Digits and nails normal, no deformity : kidney or bladder not palpable Labs/imaging reviewed. Past medical history, past surgical history, family history, social history, allergy reviewed and noted as below Family hx: no hx of CKD. Rest non-contributory Objective - Vital Signs/Intake and Output Vital Signs (last 24 hours): Temp Pulse Resp BP Pulse Ox 97.3 F L 73 18 172/107 H 98 06/04/17 12:00 06/04/17 12:00 06/04/17 12:00 06/04/17 15:03 06/04/17 06:00 Intake and Output: 06/04/17 06/04/17 06:59 18:59 Intake Total 300 300 Output Total 600 Balance 300 -300 - Medications Medications: Current Medications Amlodipine Besylate (Norvasc) 10 mg PO DAILY [facility] Aspirin (Aspirin Chewable) 81 mg PO DAILY [facility] Last Admin: 06/04/17 09:39 Dose: 81 mg Hydralazine HCl (Apresoline) 25 mg PO Q4 PRN PRN Reason: Other Last Admin: 06/04/17 15:03 Dose: 25 mg Labetalol HCl (Trandate) 200 mg PO BID [facility] Losartan Potassium (Cozaar) 100 mg PO DAILY [facility] Pantoprazole Sodium (Protonix Ec Tab) 40 mg PO DAILY [facility] Last Admin: 06/04/17 09:39 Dose: 40 mg - Labs Labs: 06/04/17 05:30 06/04/17 05:30 PT 11.8 SECONDS (9.4-12.5) 06/02/17 13:00 INR 1.08 (0.93-1.08) 06/02/17 13:00 APTT 32.2 Seconds (25.1-36.5) 06/02/17 13:00
--- NOTE | 2017-06-04 23:01 | PN ---
SUBJECTIVE: Patient denies any chest pain. PHYSICAL EXAMINATION VITAL SIGNS: Blood pressure 165/103, heart rate 78, temperature 97.8, respirations 18. HEENT: Normocephalic. CHEST: Clear. HEART: S1 and S2 regular. EXTREMITIES: No edema. LABORATORY DATA: SMA-7 is within normal limits except for potassium of 3.1. Hemoglobin and hematocrit 15.1 and 37.9. White count and platelet count are within normal limits. Abdomen CT scan, no evidence of adrenal mass, incidental 2 mm nonobstructing left lower pole renal calculus. ASSESSMENT: 1. Uncontrolled hypertension. 2. Hypokalemia. 3. Hyperlipidemia. RECOMMENDATIONS: I did review the serum cortisol level, which was below normal at 1.3. Unlikely, the patient has primary hyperaldosteronism. Continue hydralazine 25 mg q 4 hours, aspirin 81 mg once a day, Cozaar 100 mg once a day, Norvasc 10 mg once a day, labetalol 200 mg twice a day. Issa Garcia MD
[2017-06-05 08:38] LABS: BASO # 0.05 K/mm3 (0.0-2.0); BASO % 0.9 % (0.0-3.0); EOS # 0.2 (0.0-0.7); EOS % 3.4 % (1.5-5.0); GRAN # 2.71 (1.4-6.5); GRAN % 48.4 % (50.0-68.0); HEMATOCRIT 38.9 % (42.0-52.0); LYMPH # 2.2 (1.2-3.4); MEAN CELL VOLUME 81.9 fl (80.0-105.0); MEAN CORPUSCULAR HEMOGLOBIN 29.1 pg (25.0-35.0); MEAN CORPUSCULAR HGB CONC 35.5 g/dl (31.0-37.0); MEAN PLATELET VOLUME 10.7 fl (7.0-11.0); MONO # 0.4 (0.1-0.6); MONO % 7.3 % (1.0-6.0); RED CELL DISTRIBUTION WIDTH 13.7 % (11.5-14.5); WHITE BLOOD COUNT 5.6 10^3/ul (4.5-11.0)
[2017-06-05 08:53] LABS: ALB/GLOB RATIO 1.1 (1.1-1.8); ALKALINE PHOSPHATASE 62 U/L (38-126); ALT/SGPT 42 U/L (7-56); AST/SGOT 22 U/L (17-59); BILIRUBIN,TOTAL 1.1 mg/dL (0.2-1.3); BLOOD UREA NITROGEN 11 mg/dL (7-21); CALCIUM 9.1 mg/dL (8.4-10.5); CARBON DIOXIDE 27 mmol/L (21-33); CHLORIDE 104 mmol/L (98-107); GFR AFRICAN-AMERICAN > 60; GLUCOSE,RANDOM 95 mg/dL (70-110); POTASSIUM 3.3 mmol/L (3.6-5.0); SODIUM 140 mmol/L (132-148); TOTAL PROTEIN 7.7 g/dL (5.8-8.3)
[2017-06-05] MEDS: Pantoprazole 40 mg EC Tab PO SCH (09:32)
[2017-06-05] MEDS ORDERED: Potassium Chloride 20 mEq ER Tab PO ONE (09:32)
[2017-06-05 10:43] VITALS: RESP 20; TEMP 98.6; O2SAT 95
[2017-06-05 12:52] VITALS: BP 143/102; PULSE 80
--- NOTE | 2017-06-05 13:23 | CP.PCM.DIS ---
<La Nena Pal - Last Filed: 06/05/17 15:16> Provider - Provider Date of Admission: 06/03/17 14:37 Attending physician: Briana Lofton MD Primary care physician: Pasha Elizabeth MD Consults: Cardio: Dr. Garcia, Nephro: Dr. Arizmendi/Dr. Mcgovern. Time Spent in preparation of Discharge (in minutes): 40 Diagnosis - Discharge Diagnosis (1) Hypokalemia Status: Acute (2) Uncontrolled hypertension Status: Acute Hospital Course - Lab Results Lab Results: Most Recent Lab Values WBC 5.6 10^3/ul (4.5-11.0) 06/05/17 08:20 RBC 4.75 10^6/uL (3.5-6.1) 06/05/17 08:20 Hgb 13.8 g/dL (14.0-18.0) L 06/05/17 08:20 Hct 38.9 % (42.0-52.0) L 06/05/17 08:20 MCV 81.9 fl (80.0-105.0) 06/05/17 08:20 MCH 29.1 pg (25.0-35.0) 06/05/17 08:20 MCHC 35.5 g/dl (31.0-37.0) 06/05/17 08:20 RDW 13.7 % (11.5-14.5) 06/05/17 08:20 Plt Count 226 10^3/uL (120.0-450.0) 06/05/17 08:20 MPV 10.7 fl (7.0-11.0) 06/05/17 08:20 Gran % 48.4 % (50.0-68.0) L 06/05/17 08:20 Lymph % (Auto) 40.0 % (22.0-35.0) H 06/05/17 08:20 [place] % (Auto) 7.3 % (1.0-6.0) H 06/05/17 08:20 Eos % (Auto) 3.4 % (1.5-5.0) 06/05/17 08:20 Baso % (Auto) 0.9 % (0.0-3.0) 06/05/17 08:20 Gran # 2.71 (1.4-6.5) 06/05/17 08:20 Lymph # 2.2 (1.2-3.4) 06/05/17 08:20 [place] # 0.4 (0.1-0.6) 06/05/17 08:20 Eos # 0.2 (0.0-0.7) 06/05/17 08:20 Baso # 0.05 K/mm3 (0.0-2.0) 06/05/17 08:20 PT 11.8 SECONDS (9.4-12.5) 06/02/17 13:00 INR 1.08 (0.93-1.08) 06/02/17 13:00 APTT 32.2 Seconds (25.1-36.5) 06/02/17 13:00 Sodium 140 mmol/L (132-148) 06/05/17 08:20 Potassium 3.3 mmol/L (3.6-5.0) L 06/05/17 08:20 Chloride 104 mmol/L (98-107) 06/05/17 08:20 Carbon Dioxide 27 mmol/L (21-33) 06/05/17 08:20 Anion Gap 13 (10-20) 06/05/17 08:20 BUN 11 mg/dL (7-21) 06/05/17 08:20 Creatinine 0.9 mg/dl (0.8-1.5) 06/05/17 08:20 Est GFR ( Amer) > 60 06/05/17 08:20 Est GFR (Non-Af Amer) > 60 06/05/17 08:20 Random Glucose 95 mg/dL (70-110) 06/05/17 08:20 Calcium 9.1 mg/dL (8.4-10.5) 06/05/17 08:20 Phosphorus 3.9 mg/dL (2.5-4.5) 06/03/17 04:35 Magnesium 1.8 mg/dL (1.7-2.2) 06/04/17 05:30 Total Bilirubin 1.1 mg/dL (0.2-1.3) 06/05/17 08:20 AST 22 U/L (17-59) 06/05/17 08:20 ALT 42 U/L (7-56) 06/05/17 08:20 Alkaline Phosphatase 62 U/L (38-126) 06/05/17 08:20 Lactate Dehydrogenase 632 U/L (333-699) 06/02/17 13:00 Total Creatine Kinase 198 U/L (35-230) 06/03/17 03:55 CK-MB (CK-2) 2.7 ng/mL (0.0-3.6) 06/02/17 13:00 CK-MB (CK-2) % Cancelled 06/02/17 13:00 Troponin I < 0.01 ng/mL 06/03/17 03:55 Total Protein 7.7 g/dL (5.8-8.3) 06/05/17 08:20 Albumin 4.1 g/dL (3.0-4.8) 06/05/17 08:20 Globulin 3.6 gm/dL 06/05/17 08:20 Albumin/Globulin Ratio 1.1 (1.1-1.8) 06/05/17 08:20 Triglycerides 120 mg/dL (35-160) 06/03/17 04:35 Cholesterol 207 mg/dL (130-200) H 06/03/17 04:35 LDL Cholesterol Direct 135 mg/dL (0-129) H 06/03/17 04:35 HDL Cholesterol 35 mg/dL (29-60) 06/03/17 04:35 Free T4 1.29 ng/dL (0.78-2.19) 06/02/17 12:09 TSH 3rd Generation 0.48 mIU/mL (0.46-4.68) 06/02/17 12:09 Cortisol AM Sample 1.3 ug/dL (4.46-22.7) L 06/04/17 05:30 Urine Color Yellow (YELLOW) 06/03/17 22:05 Urine Appearance Clear (CLEAR) 06/03/17 22:05 Urine pH 7.0 (4.7-8.0) 06/03/17 22:05 Ur Specific [place] 1.010 (1.005-1.035) 06/03/17 22:05 Urine Protein Negative mg/dL (<30 mg/dL) 06/03/17 22:05 Urine Glucose (UA) Negative mg/dL (NEGATIVE) 06/03/17 22:05 Urine Ketones Negative mg/dL (NEGATIVE) 06/03/17 22:05 Urine Blood Negative (NEGATIVE) 06/03/17 22:05 Urine Nitrate Negative (NEGATIVE) 06/03/17 22:05 Urine Bilirubin Negative (NEGATIVE) 06/03/17 22:05 Urine Urobilinogen 1.0 E.U./dL (<1 E.U./dL) H 06/03/17 22:05 Ur Leukocyte Esterase Negative Shireen/uL (NEGATIVE) 06/03/17 22:05 U Random Total Protein 10 mg/L 06/03/17 22:05 Urine Opiates Screen Negative (NEGATIVE) 06/03/17 18:59 Urine Methadone Screen Negative (NEGATIVE) 06/03/17 18:59 Ur Barbiturates Screen Negative (NEGATIVE) 06/03/17 18:59 Ur Phencyclidine Scrn Negative (NEGATIVE) 06/03/17 18:59 Ur Amphetamines Screen Negative (NEGATIVE) 06/03/17 18:59 U Benzodiazepines Scrn Negative (NEGATIVE) 06/03/17 18:59 U Oth Cocaine Metabols Negative (NEGATIVE) 06/03/17 18:59 U Cannabinoids Screen Negative (NEGATIVE) 06/03/17 18:59 - Hospital Course Hospital Course: 47 year old male with no pertinent past medical history admitted for evaluation and treatment of uncontrolled HTN. Patient had no symptoms on admission. Patient went for a physical and was sent to [facility] by his primary for BP with systolics above 180 and diastolics above 100. Troponins were NEGATIVE x 3. Fasting Lipid Profile showed elevated Total Chol at 207, and LDL Chol at 135. Patient was counseled on lifesytle changes to improve his cholesterol. TSH and free T4 were within normal limits. Random Cortisol was not elevated at 1.3. Patient was hypokalemic on admission and required daily Potassium supplementation during his today to correct his hypokalemia. Magnesium was within normal limits. Cardiology and nephrology were consulted on the case. Blood pressure better controlled by Day 4 of admission with Amlodipine 10mg Daily, Labetalol 200mg BID, and Cozaar 100mg Daily. ASA 81 and Lipitor 20 HS was also added to patient's regiment. He will go home with all those medications. Additionally he will also be prescribed potassium chloride 20 meQ BID. Per nephro, patient's BP is stable for discharge. He has been advised to follow up with programs manager in 1 week for follow up appointment. At that appointment patient can review his Urine metanephrines and Renin/Aldosterone level results that were ordered during his stay. Patient has been advised to drink plenty of fluids to avoid complications of his incidental renal stone. Patient has also been advised that he needs to follow up with Cardiology for an outpatient stress test. He has also been advised to follow up with his primary medical physician. Patient is agreeable to plan and new medications. Relevant studies below. EKG: NSR with LVH, possible left Atrial Enlargement and T wave abnormalities. Repeat EKG was unchanged (awaiting official read) ECHO: mild to moderate LVH, Normal EF (59%), atrial septum appears aneurysmal. Renal Artery Duplex: 1.The main renal arteries are fairly well visualized. 2. No sonographically significant stenosis is identified. 3. The kidneys are normal and symmetric in size. There are no solid renal masses, abnormal calcifications or hydronephrosis noted. The renal parenchyma is normal in thickness but appears to be slightly echogenic CT Abd/Pelvis: No evidence of adrenal mass. Incidental 2mm nonobstructing left lowe rpole renal calculus. Otherwise unremarkable examination. Patient discussed and seen with Dr. Rolly Pal - PGY-1 - Date & Time of H&P Date of H&P: 06/05/17 Time of H&P: 15:37 Discharge Exam - Head Exam Head Exam: ATRAUMATIC, NORMAL INSPECTION, NORMOCEPHALIC - Eye Exam Eye Exam: EOMI, Normal appearance. absent: Conjunctival injection, Scleral icterus Pupil Exam: PERRL - ENT Exam ENT Exam: Mucous Membranes Moist - Neck Exam Additional comments: No Thyromegaly - Respiratory Exam Respiratory Exam: Clear to PA & Lateral, NORMAL BREATHING PATTERN. absent: Rales, Rhonchi, Wheezes, Stridor - Cardiovascular Exam Cardiovascular Exam: RRR, +S1, +S2. absent: JVD Additional comments: +S3, no carotid bruit. - GI/Abdominal Exam GI & Abdominal Exam: Normal Bowel Sounds, Soft. absent: Distended, Firm, Guarding, Organomegaly, Rigid, Tenderness - Extremities Exam Extremities exam: normal capillary refill Additional comments: NO pedal edema - Back Exam Back exam: absent: CVA tenderness (L), CVA tenderness (R) - Neurological Exam Neurological exam: Alert, CN II-XII Intact, Oriented x3 - Psychiatric Exam Psychiatric exam: Normal Affect, Normal Mood - Skin Skin Exam: Dry, Intact, Normal Color, Warm Discharge Plan - Discharge Medications Prescriptions: amLODIPine [Norvasc] 10 mg PO DAILY #14 tab Aspirin [Aspirin Chewable] 81 mg PO DAILY #14 chew Atorvastatin [Lipitor] 20 mg PO DIN #14 tab Labetalol [Trandate] 200 mg PO BID #28 tab Losartan [Cozaar] 100 mg PO DAILY #14 tab Potassium Chloride [K-Dur 20 mEq ER Tab] 20 meq PO BID #28 tab - Follow Up Plan Condition: STABLE Disposition: HOME/ ROUTINE Instructions: Hypertensive Crisis (GEN) Additional Instructions: Please take all new medications as instructed. Please follow up with your primary medical physician Please follow up with [facility] Doctor (Dr. Arizmendi) in about 1 week. Please schedule appointment as soon as possible. Please follow up with Sql Engineer for outpatient stress test. Referrals: Pasha Elizabeth MD [Primary Care Provider] - Ravindra Arizmendi MD [Staff Provider] - Issa Garcia MD [Staff Provider] - <Briana Lofton - Last Filed: 06/05/17 15:51> Provider - Provider Date of Admission: 06/03/17 14:37 Attending physician: Briana Lofton MD Primary care physician: Pasha Elizabeth MD Hospital Course - Lab Results Lab Results: Most Recent Lab Values WBC 5.6 10^3/ul (4.5-11.0) 06/05/17 08:20 RBC 4.75 10^6/uL (3.5-6.1) 06/05/17 08:20 Hgb 13.8 g/dL (14.0-18.0) L 06/05/17 08:20 Hct 38.9 % (42.0-52.0) L 06/05/17 08:20 MCV 81.9 fl (80.0-105.0) 06/05/17 08:20 MCH 29.1 pg (25.0-35.0) 06/05/17 08:20 MCHC 35.5 g/dl (31.0-37.0) 06/05/17 08:20 RDW 13.7 % (11.5-14.5) 06/05/17 08:20 Plt Count 226 10^3/uL (120.0-450.0) 06/05/17 08:20 MPV 10.7 fl (7.0-11.0) 06/05/17 08:20 Gran % 48.4 % (50.0-68.0) L 06/05/17 08:20 Lymph % (Auto) 40.0 % (22.0-35.0) H 06/05/17 08:20 [place] % (Auto) 7.3 % (1.0-6.0) H 06/05/17 08:20 Eos % (Auto) 3.4 % (1.5-5.0) 06/05/17 08:20 Baso % (Auto) 0.9 % (0.0-3.0) 06/05/17 08:20 Gran # 2.71 (1.4-6.5) 06/05/17 08:20 Lymph # 2.2 (1.2-3.4) 06/05/17 08:20 [place] # 0.4 (0.1-0.6) 06/05/17 08:20 Eos # 0.2 (0.0-0.7) 06/05/17 08:20 Baso # 0.05 K/mm3 (0.0-2.0) 06/05/17 08:20 PT 11.8 SECONDS (9.4-12.5) 06/02/17 13:00 INR 1.08 (0.93-1.08) 06/02/17 13:00 APTT 32.2 Seconds (25.1-36.5) 06/02/17 13:00 Sodium 140 mmol/L (132-148) 06/05/17 08:20 Potassium 3.3 mmol/L (3.6-5.0) L 06/05/17 08:20 Chloride 104 mmol/L (98-107) 06/05/17 08:20 Carbon Dioxide 27 mmol/L (21-33) 06/05/17 08:20 Anion Gap 13 (10-20) 06/05/17 08:20 BUN 11 mg/dL (7-21) 06/05/17 08:20 Creatinine 0.9 mg/dl (0.8-1.5) 06/05/17 08:20 Est GFR ( Amer) > 60 06/05/17 08:20 Est GFR (Non-Af Amer) > 60 06/05/17 08:20 Random Glucose 95 mg/dL (70-110) 06/05/17 08:20 Calcium 9.1 mg/dL (8.4-10.5) 06/05/17 08:20 Phosphorus 3.9 mg/dL (2.5-4.5) 06/03/17 04:35 Magnesium 1.8 mg/dL (1.7-2.2) 06/04/17 05:30 Total Bilirubin 1.1 mg/dL (0.2-1.3) 06/05/17 08:20 AST 22 U/L (17-59) 06/05/17 08:20 ALT 42 U/L (7-56) 06/05/17 08:20 Alkaline Phosphatase 62 U/L (38-126) 06/05/17 08:20 Lactate Dehydrogenase 632 U/L (333-699) 06/02/17 13:00 Total Creatine Kinase 198 U/L (35-230) 06/03/17 03:55 CK-MB (CK-2) 2.7 ng/mL (0.0-3.6) 06/02/17 13:00 CK-MB (CK-2) % Cancelled 06/02/17 13:00 Troponin I < 0.01 ng/mL 06/03/17 03:55 Total Protein 7.7 g/dL (5.8-8.3) 06/05/17 08:20 Albumin 4.1 g/dL (3.0-4.8) 06/05/17 08:20 Globulin 3.6 gm/dL 06/05/17 08:20 Albumin/Globulin Ratio 1.1 (1.1-1.8) 06/05/17 08:20 Triglycerides 120 mg/dL (35-160) 06/03/17 04:35 Cholesterol 207 mg/dL (130-200) H 06/03/17 04:35 LDL Cholesterol Direct 135 mg/dL (0-129) H 06/03/17 04:35 HDL Cholesterol 35 mg/dL (29-60) 06/03/17 04:35 Free T4 1.29 ng/dL (0.78-2.19) 06/02/17 12:09 TSH 3rd Generation 0.48 mIU/mL (0.46-4.68) 06/02/17 12:09 Cortisol AM Sample 1.3 ug/dL (4.46-22.7) L 06/04/17 05:30 Urine Color Yellow (YELLOW) 06/03/17 22:05 Urine Appearance Clear (CLEAR) 06/03/17 22:05 Urine pH 7.0 (4.7-8.0) 06/03/17 22:05 Ur Specific [place] 1.010 (1.005-1.035) 06/03/17 22:05 Urine Protein Negative mg/dL (<30 mg/dL) 06/03/17 22:05 Urine Glucose (UA) Negative mg/dL (NEGATIVE) 06/03/17 22:05 Urine Ketones Negative mg/dL (NEGATIVE) 06/03/17 22:05 Urine Blood Negative (NEGATIVE) 06/03/17 22:05 Urine Nitrate Negative (NEGATIVE) 06/03/17 22:05 Urine Bilirubin Negative (NEGATIVE) 06/03/17 22:05 Urine Urobilinogen 1.0 E.U./dL (<1 E.U./dL) H 06/03/17 22:05 Ur Leukocyte Esterase Negative Shireen/uL (NEGATIVE) 06/03/17 22:05 U Random Total Protein 10 mg/L 06/03/17 22:05 Urine Opiates Screen Negative (NEGATIVE) 06/03/17 18:59 Urine Methadone Screen Negative (NEGATIVE) 06/03/17 18:59 Ur Barbiturates Screen Negative (NEGATIVE) 06/03/17 18:59 Ur Phencyclidine Scrn Negative (NEGATIVE) 06/03/17 18:59 Ur Amphetamines Screen Negative (NEGATIVE) 06/03/17 18:59 U Benzodiazepines Scrn Negative (NEGATIVE) 06/03/17 18:59 U Oth Cocaine Metabols Negative (NEGATIVE) 06/03/17 18:59 U Cannabinoids Screen Negative (NEGATIVE) 06/03/17 18:59 Attending/Attestation - Attestation I have personally seen and examined this patient.: Yes I have fully participated in the care of the patient.: Yes I have reviewed all pertinent clinical information, including history, physical exam and plan: Yes Notes (Text): 06/05/17 15:48 47 year old male with no significant past medical history who was sent from his pmd for evaluation of elevated blood pressure. He was started on norvasc 10 mg, cozaar 100 mg and labetalol 200 mg bid. He is also on aspirin and statin. He was seen by nephrology who ordered renin/aldosterone and metanephrine studies which he will follow up with. He was also seen by cardiology who recommended outpatient stress test. Patient is discharged home with above regimen in addition to potassium supplementation for hypokalemia. Follow up with cardiology for outpatient stress test. Follow up with nephrology. Briana Lofton MD Hospitalist.
--- NOTE | 2017-06-05 15:24 | CP.PCM.PN ---
Subjective - Date & Time of Evaluation Date of Evaluation: 06/05/17 Time of Evaluation: 15:23 - Subjective Subjective: Follow up Nephrology Consultation: Assessment: Stable uncontrolled severe HTN with urgency with hypokalemia and elevated serum Bicarb r/o primary hyperaldo Obesity non-compliant to follow ups Plan Hypertension control with meds as ordered. continue with losartan 100 mg/day. norvasc 10 mg/day and labetalol 200 bid. avoid diuretics due to low K. avoid aldactone as it will interfere with confirmation/diagnosis of hyperaldo state. KDUR 20 meq bid supplement electrolytes low salt diet, exercise, weight loss, lifestyle modifications Work up as renin/mandeep level, metanephrine pending Dose meds/antibiotics for normal GFR. Avoid fleets enema/magnesium based laxatives. Avoid nephrotoxins/NSAIDs/ iodinated contrast (unless needed emergently) Glycemic control Further work up/management as per primary team pt stable for d/c from renal perspective Thanks for allowing me to participate in care of your patient. f/up in renal office within 1 week. Please call if any Qs. d/w primary team Dr Ravindra Arizmendi Office: [phone] Chief Complaint; none HPI: Pt is a 47 M without any hx of diabetes Mellitus or hypertension presented with complaints of high BP as noticed in office. he usually doesn't follow up with any doctor. he says 2-3 years ago he was told that his BP was on high side, doesn't remember how much. not on any meds at home Denies OTC/herbal meds or NSAIDs denies drugs such as cocaine, smoking, tobacco, licorice, decongestants. father had HTN in 60s. no hx of premature HTN in family. ROS: Cardiovascular: No chest pain. Pulmonary: No shortness of breath Gastrointestinal: denies abdominal pain No nausea. No vomiting. Genitourinary: No pain while urinating. Denies blood in urine. All other negative Physical Examination: General Appearance: Comfortable, in no acute respiratory distress, co-operative . well built male Vitals reviewed and noted as below Head; Atraumatic, normocephalic ENT: no ulcers no thrush. Tongue is midline. Oropharynx: no rash or ulcers. EYES: Pupils are equal, round and reactive to light accommodation. Eye muscles and extraocular movement intact. Sclera is anicteric. Neck; supple no lymphadenopathy, no thyromegaly or bruit Lungs: Normal respiratory rate/effort. Breath sounds bilateral equal and clear Heart: Normal rate. s1s2 normal. No rub or gallop. Extremities: no edema. No varicose veins Neurological: Patient is alert, awake and oriented to person, place and time. No focal deficit. Strength bilateral appropriate and equal Skin: Warm and dry. Normal turgor. No rash. Palpitation: Normal elasticity for age Abdomen: Abdomen is soft. Bowel sounds +. There is no abdominal tenderness, no guarding/rigidity no organomegaly Psych: normal insight and normal affect/mood MSK: no joint tenderness or swelling. Digits and nails normal, no deformity : kidney or bladder not palpable Labs/imaging reviewed. Past medical history, past surgical history, family history, social history, allergy reviewed and noted as below Family hx: no hx of CKD. Rest non-contributory Objective - Vital Signs/Intake and Output Vital Signs (last 24 hours): Temp Pulse Resp BP Pulse Ox 98.6 F 80 20 143/102 H 95 06/05/17 10:42 06/05/17 12:00 06/05/17 10:42 06/05/17 12:00 06/05/17 10:42 Intake and Output: 06/05/17 06/05/17 06:59 18:59 Intake Total 240 Balance 240 - Medications Medications: Current Medications Amlodipine Besylate (Norvasc) 10 mg PO DAILY [facility] Last Admin: 06/05/17 09:32 Dose: 10 mg Aspirin (Aspirin Chewable) 81 mg PO DAILY [facility] Last Admin: 06/05/17 09:32 Dose: 81 mg Atorvastatin Calcium (Lipitor) 20 mg PO DIN [facility] Hydralazine HCl (Apresoline) 25 mg PO Q4 PRN PRN Reason: Other Last Admin: 06/05/17 05:38 Dose: 25 mg Labetalol HCl (Trandate) 200 mg PO BID [facility] Last Admin: 06/05/17 09:32 Dose: 200 mg Losartan Potassium (Cozaar) 100 mg PO DAILY [facility] Last Admin: 06/05/17 12:51 Dose: 100 mg Pantoprazole Sodium (Protonix Ec Tab) 40 mg PO DAILY [facility] Last Admin: 06/05/17 09:32 Dose: 40 mg - Labs Labs: 12/22/17 08:20 06/05/17 08:20 PT 11.8 SECONDS (9.4-12.5) 06/02/17 13:00 INR 1.08 (0.93-1.08) 06/02/17 13:00 APTT 32.2 Seconds (25.1-36.5) 06/02/17 13:00
--- NOTE | 2017-06-05 17:46 | PN ---
DATE: SUBJECTIVE: The patient denies any chest pain. PHYSICAL EXAMINATION: VITAL SIGNS: Blood pressure 143/102, heart rate 80, temperature 98.6, and respirations 20. HEENT: Normocephalic. CHEST: Clear. HEART: S1 and S2 regular. EXTREMITIES: No edema. LABORATORY DATA: Hemoglobin and hematocrit 15.8 and 38.9. White count from previous counts are within normal limits. Today's SMA-7 is within normal limits except for potassium 3.3. ASSESSMENT: 1. Uncontrolled hypertension. 2. Abnormal EKG. 3. Hypokalemia. RECOMMENDATION: Case was discussed at length with Dr. Lofton. I did ask for an additional 10 mEq of IV potassium replacement and repeat 12 lead EKG. I recommended that the patient should undergo Myoview stress test as an outpatient. I did review the echocardiograph study for the aneurysmal septum and I found no strong evidence of that. The patient can be maintained on Cozaar, Norvasc, hydralazine, and Trandate. Issa Garcia MD
--- NOTE | 2017-06-06 09:22 | CARD ---
APPROVED REPORT EKG Measurement Heart [id number] <Conclusion> Normal sinus rhythm Possible Left atrial enlargement LVH T wave abnormality, consider lateral ischemia No change
[2017-06-06 18:46] LABS: ALDO/PRA RATIO 31.6 Ratio (0.9-28.9)
== END 2017-06-05 18:44 | disposition home or self-care (01) | DRG 134 ==
LOC: ED 10:52 → ERH 16:25 → 2RSO 19:10 → OBSVTOIN 06-03 14:37 → 5RNO 06-04 23:07
PROVIDERS: ADMIT Internal Medicine; ATTEND Internal Medicine
DX: I16.0 Hypertensive urgency (principal); E87.6 Hypokalemia; E26.09 Other primary hyperaldosteronism; N20.0 Calculus of kidney; E78.5 Hyperlipidemia, unspecified; R94.31 Abnormal electrocardiogram [ECG] [EKG]; E66.9 Obesity, unspecified; Z68.32 Body mass index [BMI] 32.0-32.9, adult; Z91.19 Patient's noncompliance with other medical treatment and regimen